=== PATIENT | female | born 1955 | race Caucasian/White ===

== ENCOUNTER 2021-08-26 07:37 | Day surgery (SDC) | payer BC ==
[~2021-08-26 07:37] MED LIST: Dexamethasone 4 MG/ML 5 ML MDV ONE; Ketorolac 30 MG/ML SDV ONE; Lactated Ringers 1,000 ML IV SCH; Lidocaine 1%/Sod Bicarbonate in NS 8.4% 1 ML Syringe IDERM PRN; Midazolam 1 MG/ML 2 ML SDV ONE; Ondansetron 4 MG/2 ML SDV ONE; Propofol 200 MG/20 ML SDV ONE; Sodium Chloride 0.9% 10 ML Syringe FLUSH PRN; Sodium Chloride 0.9% 10 ML Syringe FLUSH SCH; ceFAZolin 1 GM Vial ONE; fentaNYL 100 MCG/2 ML SDV ONE
[2021-08-26] MEDS ORDERED: Lactated Ringers 1,000 ML ONE (07:53)
[2021-08-26] MEDS ORDERED: Ondansetron 4 MG/2 ML SDV IVPUSH PRN ×2 (07:57→08:21)
[2021-08-26] MEDS ORDERED: ePHEDrine 50 MG/ML SDV IVPUSH PRN (07:57)
[2021-08-26] MEDS ORDERED: diphenhydrAMINE 50 MG/ML SDV IVPUSH PRN (07:57)
[2021-08-26] MEDS ORDERED: Phenylephrine 1% 10 MG/ML SDV IVPUSH PRN (07:57)
[2021-08-26] MEDS ORDERED: HYDROmorphone 0.5 MG/0.5 ML Syringe IVPUSH PRN (07:57)
[2021-08-26] MEDS ORDERED: fentaNYL 100 MCG/2 ML SDV IVPUSH PRN (07:57)
[2021-08-26] MEDS ORDERED: Acetaminophen 325 MG Tab PO PRN ×2 (08:21→09:50)
== END 2021-08-26 09:50 | disposition home or self-care (01) ==
LOC: JD.SDS 07:37
PROVIDERS: ATTEND Obstetrics & Gynecology
DX: C54.1 Malignant neoplasm of endometrium (principal); N84.0 Polyp of corpus uteri; N93.8 Other specified abnormal uterine and vaginal bleeding; E78.2 Mixed hyperlipidemia; Z79.899 Other long term (current) drug therapy; Z88.2 Allergy status to sulfonamides; Z98.890 Other specified postprocedural states; Z87.891 Personal history of nicotine dependence
CPT/HCPCS: 58558; A9270; J0690; J1100; J1885; J2250; J2405; J2704; J7120; 00952; J3010

== ENCOUNTER 2022-12-15 17:37 | Emergency (ER) | payer MEDICARE, OTHER ==
[2022-12-15] MEDS ORDERED: Sodium Chloride 0.9% 1,000 ML IV ONE ×4 (17:38)
[2022-12-15] MEDS ORDERED: Lactated Ringers 1,000 ML IV ONE ×2 (18:19→19:21)
[2022-12-15] MEDS ORDERED: Iopamidol 612 MG/ML 100 ML Bottle IVPUSH ONE (18:28)
[2022-12-15] MEDS ORDERED: Sodium Chloride 0.9% 10 ML Syringe FLUSH ONE (18:28)
[2022-12-15 18:29] LABS: BASOPHILS ABSOLUTE AUTO 0.1 K/mm3 (0.0-0.2); BASOPHILS PERCENT AUTO 0.5 % (0.0-1.0); EOSINOPHILS ABSOLUTE AUTO 0.2 K/mm3 (0.0-0.4); EOSINOPHILS PERCENT AUTO 1.5 % (0.0-6.0); HEMATOCRIT 32.2 % (37.0-47.0); HEMOGLOBIN 10.3 gm/dl (12.0-16.0); IMMATURE GRAN PERCENT AUTO 0.7 % (0.0-0.4); LYMPHOCYTES ABSOLUTE AUTO 2.7 K/mm3 (1.0-4.8); LYMPHOCYTES PERCENT AUTO 19.6 % (24.0-44.0); MEAN CORPUSCULAR HEMOGLOBIN 32.5 pg (28.0-32.0); MEAN CORPUSCULAR VOLUME 101.6 fl (83.0-99.0); MEAN PLATELET VOLUME 8.7 fl (9.4-12.3); MONOCYTES ABSOLUTE AUTO 1.3 K/mm3 (0.0-0.8); MONOCYTES PERCENT AUTO 9.3 % (0.0-8.0); NEUTROPHILS ABSOLUTE AUTO 9.4 K/mm3 (1.8-7.7); NEUTROPHILS PERCENT AUTO 68.4 % (41.0-71.0); PLATELET COUNT,PLT 374 K/mm3 (150-400); RED BLOOD CELL COUNT 3.17 M/mm3 (4.10-5.30)
[2022-12-15] MEDS ORDERED: fentaNYL 100 MCG/2 ML SDV IVPUSH ONE (18:36)
[2022-12-15 18:59] LABS: ALBUMIN 3.4 g/dl (3.4-5.0); ANION GAP 15.5 (5-15); BILIRUBIN TOTAL 0.2 mg/dL (0.2-1.0); BUN/CREATININE RATIO 15.5 (14-18); CALCIUM 8.8 mg/dL (8.5-10.1); CREATININE 1.1 mg/dL (0.55-1.02); EST CRCL DRUG DOSING (CG) 37.96 mL/min; POTASSIUM,K 3.5 mEq/L (3.5-5.1); PROTEIN TOTAL,TP 6.8 g/dl (6.4-8.2)
[2022-12-15] MEDS ORDERED: Norepinephrine 4 MG in Dextrose 5% in Water 246 ML IV SCH ×2 (19:00)
[2022-12-15] MEDS ORDERED: Rocuronium 50 MG/5 ML Vial ONE ×2 (19:00)
[2022-12-15] MEDS ORDERED: Ketamine 500 mg/10 ML MDV ONE ×2 (19:00→19:57)
[2022-12-15] MEDS ORDERED: EPINEPHrine 1 MG in Dextrose 5% in Water 99 ML IV SCH ×2 (19:15)
[2022-12-15] MEDS ORDERED: DOPamine/Dextrose 5%-Water 400 MG/250 ML BAG IV SCH (19:30)
[2022-12-15 19:41] LABS: INR 1.06; PROTHROMBIN TIME 11.3 SECONDS (9.7-12.0)
[2022-12-15] MEDS ORDERED: Factor IX Complex Human 500 UNIT ONE (19:44)
[2022-12-15] MEDS ORDERED: Sodium Chloride 0.9% 100 ML ONE ×2 (19:48→20:36)
[2022-12-15] MEDS ORDERED: Tranexamic Acid 1,000 MG/10 ML Vial ONE ×2 (19:48→20:35)
[2022-12-15] MEDS ORDERED: Sodium Chloride 0.9% 500 ML ONE (19:57)
[2022-12-15] MEDS ORDERED: Ketamine 500 MG in Sodium Chloride 0.9% 490 ML IV SCH (20:00)
[2022-12-15] MEDS ORDERED: Sodium Chloride 0.9% 1,000 ML ONE (20:40)
== END 2022-12-15 22:10 ==
LOC: JD.ED 17:37
DX: R06.02 Shortness of breath (principal); R61 Generalized hyperhidrosis; R00.0 Tachycardia, unspecified; Z88.2 Allergy status to sulfonamides
CPT/HCPCS: 36415; 36430; 43752; 71045; 80053; 84484; 85025; 85610; 86850; 86900; 86901; 86922; 93005; 96361; 96365; 96366; 96368; 99285; J0171; J1265; J3490; J7030; J7040; J7060; J7120; J7168; P9016; P9017; 71260; 93010; 99284